=== PATIENT | male | born 1950 | race Caucasian/White ===

== ENCOUNTER 2016-10-07 14:20 | Outpatient (CLI) | payer MEDICARE, OTHER | END 2016-10-07 14:22 | LOC: POD 14:20 | PROVIDERS: ATTEND Podiatrist | DX: M72.2 Plantar fascial fibromatosis (principal) | CPT/HCPCS: G0463 ==

== ENCOUNTER 2016-10-21 16:23 | Outpatient (CLI) | payer MEDICARE, OTHER | END 2016-10-21 16:24 | LOC: POD 16:23 | PROVIDERS: ATTEND Podiatrist | DX: M72.2 Plantar fascial fibromatosis (principal) | CPT/HCPCS: G0463 ==

== ENCOUNTER 2018-05-31 08:14 | Outpatient (CLI) | payer MEDICARE, OTHER ==
[2018-05-31 09:03] LABS: eGFR (Non-African) > 60
== END 2018-05-31 08:15 ==
LOC: LAB 08:14
PROVIDERS: ATTEND Family Medicine
DX: E78.2 Mixed hyperlipidemia (principal)
CPT/HCPCS: 36415; 80053; 80061

== ENCOUNTER 2019-07-25 09:20 | Outpatient (CLI) | payer MEDICARE, OTHER ==
[2019-07-25 10:34] LABS: eGFR (Non-African) 57
[2019-07-25 10:35] LABS: HDL 37 mg/dL (>40)
--- NOTE | 2019-07-26 08:06 | Diagnostic Imaging Report ---
PATIENT MR#: [id number] PATIENT PATIENT NAME: CATHRYN PATTERSON DATE OF : 1950 REFERRING PHYSICIAN: Brendan Leal EXAM DATE: 07/25/2019 ACCESSION NUMBER: [id number] EXAM DESCRIPTION: CT CHEST W/O CONT CA S CLINICAL HISTORY: LOW DOSE LUNG CANCER SCREENING, 35 year smoking history. TECHNIQUE: Low dose thin collimation CT chest without contrast. COMPARISON: No pertinent prior studies are available at this time. CT CHEST WITHOUT CONTRAST: Lungs: Hyperinflation and biapical emphysematous change of COPD. Biapical pleuroparenchymal nodular scarring. Calcified granulomas are noted in the right and left upper lobes. 6 mm subpleural nodule of the right middle lo be (axial series image 169). Scattered regions of bronchiectasis. Right lower lobe linear atelectasis. No infiltrate, masses or effusion. Heart: Normal size. No significant effusion. Aorta: Normal caliber. Mediastinum and shital: Multiple mediastinal lymph nodes which are mildly enlarged but largely containe d calcification consistent with granulomatous process. Largest calcified lymph node of the AP window measures 1.2 x 2 .2 cm. Bony thorax: No acute findings, allowing for limitation of respiratory motion. Limited upper abdomen: At least three hepatic hypodensities measuring up to 2.3 cm are incompletely e valuated on this noncontrast chest CT, but are statistically most likely to represent hepatic cysts, in the absence of personal cancer history. IMPRESSION: 1. 6 mm subpleural nodule of the right middle lobe likely represents an area of peripheral atelectasi s. However, due to the patient's smoking history, initial follow-up chest CT in 6 to 12 months is recommended to confirm stability. If stable, repeat CT at 18 to 24 months is recommended per Fleischner lung nodule criteria. 2. Bilateral pulmonary calcified granulomas and calcified mediastinal lymph nodes are consistent with prior granulomatous process. 3. Pulmonary hyperinflation and mild-moderate emphysematous changes are consistent with COPD. Read by: Dr. Temo Julien Transcribed by: Temo Julien Transcribed Date: 07/26/2019 8:05:39 AM Electronically signed by: Dr. Temo Julien Date signed: 07/26/2019 8:05:51 AM
== END 2019-07-25 09:25 ==
LOC: LAB 09:20
PROVIDERS: ATTEND Family Medicine
DX: Z12.2 Encounter for screening for malignant neoplasm of respiratory organs (principal); E78.5 Hyperlipidemia, unspecified
CPT/HCPCS: 36415; 80053; 80061; G0297

== ENCOUNTER 2019-09-16 07:50 | Day surgery (SDC) | payer MEDICARE, OTHER ==
[2019-09-16] MEDS ORDERED: LIDOCAINE HCL 2% PF 100MG/5ML VIAL IJ ONE (08:48)
[2019-09-16] MEDS ORDERED: ePHEDrine SULFATE 50 MG/1 ML IVP ONE (08:48)
[2019-09-16] MEDS ORDERED: PROPOFOL 200 MG/20 ML VIAL IV ONE (08:48)
[2019-09-16] MEDS ORDERED: LACTATED RINGERS 1,000 ML IV.SOLN IV ONE (08:48)
--- NOTE | 2019-09-18 13:39 | GI Report ---
DATE OF PROCEDURE: 09/16/2019 REFERRING PHYSICIAN: Dr. Leal PROCEDURE PERFORMED: Screening colonoscopy. SURGEON: Oliva Snow M.D., F.A.C.P. INDICATION FOR PROCEDURE: The patient is a 69-year-old man. His last colonoscopy was 20 years ago. He has had a dry cough. He has been a cigarette smoker for about 35-40 years. He still smokes. He denies any change in bowel habits. PROCEDURE MEDICATION: Propofol, as per Anesthesia. DESCRIPTION OF PROCEDURE: An Olympus video colonoscope was advanced to the rectum. He does have diverticular disease in the sigmoid. It took awhile maneuvering through there and we finally got to the cecum. The appendiceal orifice was normal. In the ascending colon near the hepatic flexure the patient had a 2 mm polyp removed with a cold snare. I am not sure the specimen was retrieved in the suctioning. In the descending colon the patient has about a 0.5 cm polyp amongst diverticula that was removed with electrocautery and submitted to pathology. The patient did have 1 transit run of tachycardia, rate was 130. There may have been slight ST segment depression, and he immediately converted out of that. We will get a post procedure EKG. FINDINGS: 1. Two polyps removed one near the hepatic flexure, one in the descending colon. 2. Moderately severe diverticular disease. 3. Suspect the patient may have some underlying ischemic heart disease and COPD. Further evaluation of that may be needed. RECOMMENDATIONS: Pending the pathology of the polyp, consider relook at his colon in 5 years. OLIVA SNOW M.D., F.A.C.P. CHRISTIAN/cee Job#: [id number] Cc: Dr. Mel PHILIP
== END 2019-09-16 10:10 | disposition home or self-care (01) ==
LOC: OPSURG 07:50 → SUATTDRO 07:50 → OPSURG 10:10
PROVIDERS: ATTEND Internal Medicine Gastroenterology
DX: Z12.11 Encounter for screening for malignant neoplasm of colon (principal); D12.4 Benign neoplasm of descending colon; K57.30 Diverticulosis of large intestine without perforation or abscess without bleeding; F17.210 Nicotine dependence, cigarettes, uncomplicated
CPT/HCPCS: 45385; J2001; J2704; J7120